=== PATIENT | female | born 1975 | race Native Hawaiian/Other Pacific Islander ===

== ENCOUNTER 2017-06-30 20:24 | Emergency (ER) | payer OTHER ==
[2017-06-30 20:30] VITALS: BP 112/73; PULSE 71; RESP 20; TEMP 97.9; O2SAT 96
[2017-06-30] MEDS ORDERED: Lidocaine 1% Inj (20ml) ONE (20:44)
[2017-06-30] MEDS ORDERED: Bacitracin 500 Units/gm Oint Foilpak UD ONE (20:44)
[2017-06-30] MEDS ORDERED: Tetanus/Diphtheria Toxoids 0.5 ml Syringe IM ONE (21:16)
[2017-06-30] MEDS ORDERED: Bacitracin 500 Units/gm Oint Foilpak UD TOP ONE (21:17)
[2017-06-30] MEDS ORDERED: Tdap Vaccine 0.5 ml Vial (10-64 yrs) IM ONE (21:17)
[2017-06-30] MEDS ORDERED: Lidocaine 1% Inj (20ml) INFIL ONE (21:19)
--- NOTE | 2017-06-30 21:20 | C.PDOC ---
History Of Present Illness pt stabbed herself in left hand when trying to get pit out of an avocado just relief [employer]. no numbness, weakness or tinging. Time Seen by Provider: 06/30/17 20:39 Chief Complaint (Nursing): Abnormal Skin Integrity History Per: Patient, Family History/Exam Limitations: no limitations Onset/Duration Of Symptoms: Hrs (1) Current Symptoms Are (Timing): Still Present Location Of Injury: Left: Hand Quality Of Symptoms: Painful Severity: Mild Past Medical History Reviewed: Historical Data, Nursing Documentation, Vital Signs Vital Signs: Last Vital Signs Temp 97.9 F 06/30/17 20:27 Pulse 71 06/30/17 20:27 Resp 20 06/30/17 21:40 BP 112/73 06/30/17 20:27 Pulse Ox 96 06/30/17 22:40 - Medical History PMH: No Chronic Diseases Family History: States: Unknown Family Hx - Social History Hx Tobacco Use: No Hx Alcohol Use: No Hx Substance Use: No Review Of Systems Constitutional: Negative for: Fever, Chills Musculoskeletal: Positive for: Hand Pain Skin: Positive for: Other (laceration left hand) Neurological: Negative for: Weakness, Numbness Physical Exam - Physical Exam Appears: Non-toxic, No Acute Distress Skin: Warm, Dry, Other (left hand with 2 cm laceration at base of third finger, no active bleeding, hand covered in turmeric. ) Extremity: Other (2 cm laceration base left third finger, from of finger with flexion and extension. sensation intact. ) Pulses: Left Radial: Normal Neurological/Psych: Oriented x3, Normal Speech, Normal Cognition ED Course And Treatment O2 Sat by Pulse Oximetry: 96 Laceration - Laceration Repair hand left Wound Length (In cm): 2 Description Of Wound: Linear Wound Cleansed With: Sterile Saline Anesthesia: Lidocaine 1% Wound Examination: Irrigated With Saline, No FB With Wound Exploration, No Tendon Injury With Wound Exploration Wound Closure: Suture (#4 of 4-o ethilon) Suture Technique And Material Used: Interrupted Wound Complexity: Simple Medical Decision Making Medical Decision Making: left hand covered with turmeric, washed off by patient, then irrigated copiously. wound repaired. pt tolerated procedure well. Disposition Counseled Patient/Family Regarding: Diagnosis, Need For Followup - Disposition Referrals: Cory Winchester MD [Medical Doctor] - Disposition: HOME/ ROUTINE Disposition Time: 21:20 Condition: IMPROVED Additional Instructions: Keep clean and dry. Change dressing daily, wash gently with soap and water, pat dry, then re-apply bacitracin. Take antibiotics as prescrbied, Tylenol for pain if needed. Return to ER for any signs of infection such as redness, discharge redness or swelling. .suture removal 7-10 days. Prescriptions: Cephalexin [cephalexin] 500 mg PO TID #21 cap Instructions: Laceration Repair With Stitches (DC) Forms: [facility] (M[place]ese), General Discharge Instructions - Clinical Impression Clinical Impression: Laceration of hand, left
== END 2017-06-30 21:40 | disposition home or self-care (01) ==
LOC: C.ER 20:24
DX: S61.412A Laceration without foreign body of left hand, initial encounter (principal); W26.0XXA Contact with knife, initial encounter; Y93.G1 Activity, food preparation and clean up; Y92.89 Other specified places as the place of occurrence of the external cause; Z23 Encounter for immunization